=== PATIENT | male | born 1970 | race Caucasian/White ===

== ENCOUNTER 2023-07-23 21:23 | Emergency (ER) | payer OTHER ==
[2023-07-23 21:48] LABS: BASOPHILS % (AUTO) 0.3 %; EOSINOPHILS # (AUTO) 0.1 10^3/uL (0.0-0.7); EOSINOPHILS % (AUTO) 0.9 %; HCT - HEMATOCRIT 41.4 % (42.0-52.0); LYMPHOCYTES # (AUTO) 2.5 10^3/uL (1.5-3.5); LYMPHOCYTES % (AUTO) 32.6 %; MEAN CORPUSCULAR HEMOGLOBIN 26.6 pg (27.0-31.0); MEAN CORPUSCULAR HGB CONC 31.4 g/dL (32.0-36.0); MEAN CORPUSCULAR VOLUME 84.7 fL (80.0-94.0); MEAN PLATELET VOLUME 9.9 fL (7.4-11.4); MONOCYTES # (AUTO) 0.9 10^3/uL (0.0-1.0); MONOCYTES % (AUTO) 11.7 %; NEUTROPHILS # (AUTO) 4.1 10^3/uL (1.5-6.6); NEUTROPHILS % (AUTO) 54.2 %; PLT - PLATELET COUNT 283 10^3/uL (130-450); RED BLOOD COUNT 4.89 10^6/uL (4.70-6.10); RED CELL DISTRIBUTION WIDTH 13.3 % (12.0-15.0); WHITE BLOOD COUNT 7.5 x10^3/uL (4.8-10.8)
[2023-07-23] MEDS: ASPIRIN CHEW 81 MG TABLET PO STA (21:56)
[2023-07-23] MEDS: NITROGLYCERIN 2% PASTE TOP STA (21:56)
--- NOTE | 2023-07-23 22:00 | ED Physician Documentation ---
PD HPI CHEST PAIN - Stated complaint Stated Complaint: CHEST TIGHTNESS/LT ARM PX - Chief complaint Chief Complaint: Cardiac - History obtained from History obtained from: Patient - Additional information Additional information: Patient is a 53-year-old male with no significant past medical history presenting for evaluation of chest pain with radiation to the left arm starting around 7 or 8:00 as he was sitting down with a Bible group. Patient states around 3:00 today he did feel some heaviness in the upper part of his body but did not think much of it. This evening though he became concerned with the pain in his chest and arm. He denies any known exacerbating factors. He did take a baby aspirin. He states that the chest pain has resolved and he feels some soreness in the left arm now. He denies a history of hypertension, diabetes, hyperlipidemia, known coronary artery disease. He denies tobacco, drug, regular alcohol use. Denies recent travel. No leg swelling or pain. Review of Systems Constitutional: denies: Fever Cardiac: reports: Chest pain / pressure Respiratory: denies: Dyspnea GI: denies: Abdominal Pain, Vomiting Musculoskeletal: denies: Back pain Neurologic: denies: Headache PD PAST MEDICAL HISTORY - Past Medical History Past Medical History: No - Past Surgical History Past Surgical History: No - Present Medications Home Medications: Ambulatory Orders Medication Instructions Recorded Confirmed Cetirizine [ZyrTEC] 10 mg PO DAILY PRN 07/23/23 07/23/23 Fluticasone [Flonase] 1 spray LA DAILY PRN 07/23/23 07/23/23 - Allergies Allergies/Adverse Reactions: Allergies Allergy/AdvReac Type Severity Reaction Status Date / Time No Known Drug Allergies Allergy Verified 07/23/23 21:48 - Social History Does the pt smoke?: No Smoking Status: Never smoker Does the pt drink ETOH?: Yes PD ED PE NORMAL - General General: Alert and oriented X 3, No acute distress, Well developed/nourished - HEENT HEENT: Atraumatic, Moist mucous membranes, Pharynx benign - Neck Neck: Supple, no meningeal sign - Cardiac Cardiac: RRR, Strong equal pulses - Respiratory Respiratory: No respiratory distress, Clear bilaterally - Abdomen Abdomen: Normal bowel sounds, Soft, Non tender, Non distended - Derm Derm: Warm and dry - Extremities Extremities: No edema, No calf tenderness / cord - Neuro Neuro: Normal speech Results - Vitals Vitals: Vital Signs - 24 hr 07/23/23 07/23/23 07/23/23 21:30 21:42 22:08 Temperature 36.9 C Heart Rate 86 83 88 Respiratory 18 18 18 Rate Blood Pressure 172/112 H 161/110 H 171/104 H O2 Saturation 99 99 98 Oxygen O2 Source Room air - EKG (time done) 2131 EKG releavant findings:: EKG personally interpreted by author of this note. Relevant findings are: Rate 78, normal sinus rhythm, ST elevation in inferior leads with depression in 1, avL, V2, V3, V4 Ischemia: ST elevation c/w ischemia 2133 EKG releavant findings:: EKG personally interpreted by author of this note. Relevant findings are: Rate 78, ST elevations in inferior leads, depressions in anterior lateral leads, no significant change from prior EKG from 2 minutes ago - Labs Labs: Laboratory Tests 07/23/23 07/23/23 21:41 21:41 WBC 7.5 RBC 4.89 Hgb 13.0 L Hct 41.4 L MCV 84.7 MCH 26.6 L MCHC 31.4 L RDW 13.3 Plt Count 283 MPV 9.9 Neut # (Auto) 4.1 Lymph # (Auto) 2.5 [place] # (Auto) 0.9 Eos # (Auto) 0.1 Baso # (Auto) 0.0 Absolute Nucleated RBC 0.00 Nucleated RBC % 0.0 Sodium 138 Potassium 3.5 Chloride 102 Carbon Dioxide 27 Anion Gap 9.0 BUN 14 Creatinine 1.0 Estimated GFR (MDRD) 78 L Glucose 155 H Calcium 10.0 Total Bilirubin 0.4 AST 30 ALT 72 H Alkaline Phosphatase 71 Troponin I High Sens 3579.5 H* Total Protein 7.8 Albumin 4.1 Globulin 3.7 Albumin/Globulin Ratio 1.1 Lipase 78 PD Medical Decision Making - ED course Complexity details: reviewed results, d/w patient, d/w family ED course: Patient is a 53-year-old male presenting for evaluation of chest pain with radiation to the left arm starting this afternoon into the evening. Denies history of coronary artery disease, hypertension, diabetes or hyper lipidemia. EKG is concerning for STEMI. Presented to ER physician at [facility] to discussed with their on-call cardiology and they have graciously accepted for transfer. Patient received full dose aspirin, heparin as well as nitro with improvement in his symptoms. Blood pressure was noted to be slightly elevated. Patient was transported by air. Chest x-ray was not able to be obtained prior to patient being transported but clinically I do not have concerns that patient has a pneumothorax.Family was present at the bedside and also notified regarding diagnosis and plan for transfer. - Critical Care Time(min): 31 Time Includes: Direct patient care, Reassess patient, Document care, Coordinate care Departure - Departure Disposition: 02 Transfer Acute Care Hosp Clinical Impression: STEMI (ST elevation myocardial infarction) Condition: Stable Forms: PCP List Discharge Date/Time: 07/23/23 22:13
[2023-07-23] MEDS: HEPARIN 25000UNITS/500ML (D5W) 25,000 UNIT/500 ML BAG IV SCH (22:01)
[2023-07-23 22:04] LABS: ALBUMIN 4.1 g/dL (3.2-5.5); ALBUMIN/GLOBULIN RATIO 1.1 (1.0-2.2); BILIRUBIN,TOTAL 0.4 mg/dL (0.2-1.0); POTASSIUM 3.5 mmol/L (3.5-4.5); TOTAL PROTEIN 7.8 g/dL (6.4-8.9)
[2023-07-23 22:09] LABS: TROPONIN I HIGH SENSITIVITY 3579.5 ng/L (2.3-19.7)
[2023-07-23 22:14] VITALS: BP 171/104; O2SAT 98
== END 2023-07-23 22:13 | disposition short-term general hospital (02) ==
LOC: ED 21:23
DX: I21.3 ST elevation (STEMI) myocardial infarction of unspecified site (principal)
CPT/HCPCS: 36415; 80053; 83690; 84484; 85025; 93005; 96374; 99285; 99291; A9270

== ENCOUNTER 2023-08-09 14:00 | Outpatient (CLI) | payer OTHER | END 2023-08-09 23:59 | disposition left against medical advice (07) | LOC: EMS 14:00 | DX: R07.9 Chest pain, unspecified (principal); R06.02 Shortness of breath; M79.622 Pain in left upper arm ==

== ENCOUNTER 2023-09-10 16:20 | Emergency (ER) | payer OTHER ==
--- NOTE | 2023-09-10 16:37 | ED Physician Documentation ---
PD HPI CHEST PAIN - Stated complaint Stated Complaint: L ARM PX/NUMBNESS - Chief complaint Chief Complaint: Neuro - History obtained from History obtained from: Patient - History of Present Illness Timing - onset: Today, How many days ago (couple) Timing - onset during: Sleep (he was napping and awoke with feeling of numbness in left little and ring fingers. Some discomfort at elbow. No chest pain nor dyspnea. Has had heart anginal pains the past month or so, and was seen for chest pain with elevated troponin early July. Heart cath showed old inferior? occlusion.) Timing - duration: Hours (awoke with numbness in fingers. No chest pain. They were slow to improve to normal and with history of recent AMI, he was concerned for referred pain from recurrent CA. Here appropriately for eval.) Timing - details: Abrupt onset (noted it when awoke from nap. Was okay prior to that couple hours previously.), Still present (easing degree of numbness but not fully resolved. no bruising nor vein tenderness in arm (he answers that his heart cath was groin and not arm when asked).) Location: Left shoulder/arm (elbow and fingers). No: Substernal, Left chest Similar symptoms before: Diagnosis (had some arm discomfort along with chest pain 07/22 and 08/08 with Dx of AMI early July. On meds new from cardiology. Cath planned again early September.) Recently seen: Emergency Dept (seen July 22 wiht abrupt chest pain and ECG showing inferior STEMI. 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 Repeat cath 08/08 with CP symptoms and again unsuccessful recannulation. Having cath again early September.) Review of Systems Constitutional: denies: Fever, Chills Cardiac: denies: Pedal edema, Calf pain Respiratory: denies: Dyspnea, Cough, Wheezing PD PAST MEDICAL HISTORY - Past Medical History Cardiovascular: CA Respiratory: None Neuro: None Endocrine/Autoimmune: None - Past Surgical History Past Surgical History: No - Present Medications Home Medications: Ambulatory Orders Medication Instructions Recorded Confirmed Cetirizine [ZyrTEC] 10 mg PO DAILY PRN 07/23/23 09/10/23 Fluticasone [Flonase] 1 spray LA DAILY PRN 07/23/23 09/10/23 Aspirin Chewable [[place] 1 tab PO DAILY 09/10/23 09/10/23 Aspirin] Atorvastatin [Lipitor] 40 mg PO QPM 09/10/23 09/10/23 Clopidogrel [Plavix] 1 tab PO DAILY 09/10/23 09/10/23 Empagliflozin [Jardiance] 5 mg PO DAILY 09/10/23 09/10/23 Isosorbide Mononitrate ER [Imdur] 1 tab PO DAILY 09/10/23 09/10/23 Lisinopril [Zestril] 5 mg PO DAILY 09/10/23 09/10/23 Nitroglycerin [Nitrostat] 1 tab SL PRN PRN 09/10/23 09/10/23 Spironolactone [Aldactone] 1 tab PO DAILY 09/10/23 09/10/23 carvediloL [Coreg] 1 tab PO DAILY 09/10/23 09/10/23 - Allergies Allergies/Adverse Reactions: Allergies Allergy/AdvReac Type Severity Reaction Status Date / Time No Known Drug Allergies Allergy Verified 09/10/23 16:29 - Social History Does the pt smoke?: No Smoking Status: Never smoker Does the pt drink ETOH?: Yes PD ED PE NORMAL - Vitals Vital signs reviewed: Yes - General General: Alert and oriented X 3, No acute distress, Well developed/nourished - Cardiac Cardiac: RRR, No murmur - Respiratory Respiratory: No respiratory distress, Clear bilaterally - Abdomen Abdomen: Soft, Non tender - Derm Derm: Normal color, Warm and dry - Extremities Extremities: Normal ROM s pain, No edema, No calf tenderness / cord - Neuro Neuro: Alert and oriented X 3, No motor deficit, Normal speech Results - Vitals Vitals: Oxygen O2 Source Room air - EKG (time done) 16:39 EKG releavant findings:: EKG personally interpreted by author of this note. Relevant findings are: Rate: Rate (enter#) (62) Rhythm: NSR [place]: Normal Intervals: Normal SC QRS: Normal Ischemia: Normal ST segments, Q waves (inferior), T wave inversion (inferior). No: ST elevation c/w ischemia, ST depression Compare to prior EKG: Changed from prior EKG (prior ECG 07/23/[address] elevations inferiorly c/w STEMI. Current one wihtout ST changes, and has Q, inverted Ts same leads c/w evolved completed CA. ) - Labs Labs: Laboratory Tests 09/10/23 09/10/23 09/10/23 17:02 17:02 17:02 WBC 5.6 RBC 5.09 Hgb 13.2 L Hct 42.9 MCV 84.3 MCH 25.9 L MCHC 30.8 L RDW 13.5 Plt Count 193 MPV 9.5 Neut # (Auto) 3.2 Lymph # (Auto) 1.7 [place] # (Auto) 0.6 Eos # (Auto) 0.1 Baso # (Auto) 0.0 Absolute Nucleated RBC 0.00 Nucleated RBC % 0.0 Sodium 137 Potassium 3.7 Chloride 105 Carbon Dioxide 24 Anion Gap 8.0 BUN 18 Creatinine 0.9 Estimated GFR (MDRD) 89 Glucose 117 H Calcium 9.8 Magnesium 1.9 Total Bilirubin 0.4 AST 14 ALT 23 Alkaline Phosphatase 53 Troponin I High Sens 18.1 B-Natriuretic Peptide 96 Total Protein 7.1 Albumin 4.3 Globulin 2.8 Albumin/Globulin Ratio 1.5 Lipase 55 - Rads (name of study) chest xray Relevant Findings:: Prelim report reviewed (no acute findings.), EMP independent interpretation of test PD Medical Decision Making - ED course Complexity details: reviewed results (ECG without acute changes. Trop negative after 2 hours of symptoms. Distrubtion more c/w ulnar nerve neuropraxia, and likely was pressing nerve at elbow while sleeping. Would only come to that thought after negative testing for AMI/CHF/etc. ), considered differential (left elbow/fingers numbness with recent AMI. Not chest pain today. He had noted symptoms after awakening fro nap and was lying on left side. ), d/w patient Departure - Departure Disposition: 01 Home, Self Care Clinical Impression: Finger numbness, CAD (coronary artery disease), Ruled out for myocardial infarction Condition: Stable Record reviewed to determine appropriate education?: Yes Follow-Up: LD SAUCEDO DO [Primary Care Provider] - [facility] - Card [Provider Group] Comments: Your EKG does not show any obvious ischemic changes. Your troponin which is the clarke part is well in normal range. Chest x-ray was clear as well. Other tests were basic blood count and chemistry panel and no obvious abnormalities there. No signs of heart attack or heart muscle injury or lung cause for your arm discomfort. The distribution and character of it could even be some temporary n europraxia (a pressure or inflammation of the nerve that led to the numbness in the fingers). Follow-up with your primary care and cardiology as planned. Continue usual medicines. Recheck if recurrent symptoms or anything else new otherwise good luck with your procedure on September 22. Forms: PCP List Discharge Date/Time: 09/10/23 18:30
[2023-09-10 17:08] LABS: BASOPHILS % (AUTO) 0.4 %; EOSINOPHILS # (AUTO) 0.1 10^3/uL (0.0-0.7); EOSINOPHILS % (AUTO) 2.3 %; HCT - HEMATOCRIT 42.9 % (42.0-52.0); HGB - HEMOGLOBIN 13.2 g/dL (14.0-18.0); LYMPHOCYTES # (AUTO) 1.7 10^3/uL (1.5-3.5); LYMPHOCYTES % (AUTO) 30.7 %; MEAN CORPUSCULAR HEMOGLOBIN 25.9 pg (27.0-31.0); MEAN CORPUSCULAR HGB CONC 30.8 g/dL (32.0-36.0); MEAN CORPUSCULAR VOLUME 84.3 fL (80.0-94.0); MEAN PLATELET VOLUME 9.5 fL (7.4-11.4); MONOCYTES # (AUTO) 0.6 10^3/uL (0.0-1.0); MONOCYTES % (AUTO) 10.3 %; NEUTROPHILS # (AUTO) 3.2 10^3/uL (1.5-6.6); NEUTROPHILS % (AUTO) 56.1 %; PLT - PLATELET COUNT 193 10^3/uL (130-450); RED BLOOD COUNT 5.09 10^6/uL (4.70-6.10); RED CELL DISTRIBUTION WIDTH 13.5 % (12.0-15.0); WHITE BLOOD COUNT 5.6 x10^3/uL (4.8-10.8)
[2023-09-10 17:18] LABS: MAGNESIUM 1.9 mg/dL (1.7-2.3)
[2023-09-10 17:25] LABS: ALBUMIN 4.3 g/dL (3.2-5.5); ALBUMIN/GLOBULIN RATIO 1.5 (1.0-2.2); BILIRUBIN,TOTAL 0.4 mg/dL (0.2-1.0); CALCIUM 9.8 mg/dL (8.5-10.3); CREATININE 0.9 mg/dL (0.6-1.3); POTASSIUM 3.7 mmol/L (3.5-4.5); TOTAL PROTEIN 7.1 g/dL (6.4-8.9)
[2023-09-10 17:30] LABS: TROPONIN I HIGH SENSITIVITY 18.1 ng/L (2.3-19.7)
--- NOTE | 2023-09-10 17:53 | XRAY Report ---
PROCEDURE: Chest 1V INDICATIONS: Chest Pain TECHNIQUE: One view of the chest was acquired. COMPARISON: None. FINDINGS: Surgical changes and devices: None. Lungs and pleura: No pleural effusions or pneumothorax. Lungs are clear. Mediastinum: Mediastinal contours appear normal. Heart size is normal. Bones and chest wall: No suspicious bony lesions. Overlying soft tissues appear unremarkable. IMPRESSION: No acute cardiopulmonary process. Reviewed by: Tomy Llamas MD on 09/10/2023 4:52 PM AKDT Approved by: Tomy Llamas MD on 09/10/2023 4:52 PM AKDT Station ID: [id number]
[2023-09-10 18:37] VITALS: BP 116/81; O2SAT 95
== END 2023-09-10 18:30 | disposition home or self-care (01) ==
LOC: ED 16:20
DX: R20.0 Anesthesia of skin (principal); I25.10 Atherosclerotic heart disease of native coronary artery without angina pectoris; I25.2 Old myocardial infarction; Z79.02 Long term (current) use of antithrombotics/antiplatelets; Z79.899 Other long term (current) drug therapy
CPT/HCPCS: 36415; 80053; 83690; 83735; 83880; 84484; 85025; 93005; 99283; 99284